=== PATIENT | male | born 1960 | race Two or more races ===

== ENCOUNTER 2016-10-30 17:00 | Observation (INO) | payer OTHER ==
[~2016-10-30] VITALS: Ht 167.6 cm; Wt 100.2 kg
[2016-10-30] MEDS ORDERED: ENAL5TAB PO (17:42)
[2016-10-30] MEDS ORDERED: SILD20TA PO (17:42)
[2016-10-30] MEDS ORDERED: OMEP-110 PO (17:42)
[2016-10-30] MEDS ORDERED: PIOG45TA3 PO (17:42)
[2016-10-30] MEDS ORDERED: METF500T4 PO (17:42)
[2016-10-30] MEDS ORDERED: TAMS-11 PO (17:42)
[2016-10-30 17:49] LABS: HEMOGLOBIN 14.6 g/dL (13.7-18.0)
[2016-10-30] MEDS ORDERED: SODIUM CHLORIDE 0.9% 1,000 ML IV ONE (18:00)
[2016-10-30 18:14] LABS: BLOOD UREA NITROGEN 11 mg/dL (7-18)
[2016-10-30] MEDS ORDERED: SODIUM CHLORIDE FLUSH 10ML SYR IVF ONE (18:30)
[2016-10-30] MEDS ORDERED: SODIUM CHLORIDE FLUSH 10ML SYR IVF PRN (19:00)
[2016-10-30] MEDS ORDERED: ONDANSETRON 2MG/ML, 2ML ONE (19:21)
[2016-10-30] MEDS ORDERED: MORPHINE SULFATE 4 MG/ML, 1ML ONE (19:21)
[2016-10-30] MEDS ORDERED: HYDROmorphone 1 MG/ML, 1ML ONE (19:24)
[2016-10-30] MEDS ORDERED: HYDROmorphone 1 MG/ML, 1ML IVPush PRN (19:30)
[2016-10-30] MEDS ORDERED: ONDANSETRON 2MG/ML, 2ML IVPush ONE (19:30)
[2016-10-30] MEDS ORDERED: [UNRECOGNIZED DRUG - REMARK] SQ (19:32)
[2016-10-30] MEDS ORDERED: DOCUSATE 100 MG CAPSULE PO PRN (20:00)
[2016-10-30] MEDS ORDERED: GLUCAGON 1 MG IM PRN (20:00)
[2016-10-30] MEDS ORDERED: DEXTROSE 4 GM TAB.CHEW PO PRN (20:00)
[2016-10-30] MEDS ORDERED: ONDANSETRON ODT 4 MG PO PRN (20:00)
[2016-10-30] MEDS ORDERED: hydrALAzine 20 MG/ML, 1ML IVPush PRN (20:00)
[2016-10-30] MEDS ORDERED: ENOXAPARIN 40 MG/0.4 ML SQ SCH (20:00)
[2016-10-30] MEDS ORDERED: BISACODYL 10 MG SUPP PR PRN (20:00)
[2016-10-30] MEDS ORDERED: HYDROmorphone 2 MG/ML, 1ML IVPush PRN (20:00)
[2016-10-30] MEDS ORDERED: DEXTROSE 50%, 50ML SYRINGE IVPush PRN (20:00)
[2016-10-30] MEDS ORDERED: POLYETHYLENE GLYCOL 17 GM PACKET PO PRN (20:00)
[2016-10-30] MEDS: SODIUM CHLORIDE FLUSH 10ML SYR IVF SCH (20:34)
[2016-10-30] MEDS ORDERED: INSULIN DETEMIR 100 UNITS/ML, PEN SQ-INSULIN SCH (21:00)
[2016-10-30] MEDS: metFORMIN 500 MG TABLET PO SCH (21:00)
[2016-10-30] MEDS: HYDROcodone/APAP 5/325 TABLET PO PRN (23:07)
[2016-10-30] MEDS ORDERED: PNEUMOCOCCAL 23 VACCINE IM-VACC ONE (23:30)
[2016-10-31 01:52] VITALS: BP 109/73
[2016-10-31] MEDS: HYDROcodone/APAP 5/325 TABLET PO PRN ×2 (08:14→14:00)
[2016-10-31] MEDS: metFORMIN 500 MG TABLET PO SCH (08:14)
[2016-10-31] MEDS: SODIUM CHLORIDE FLUSH 10ML SYR IVF SCH (08:16)
[2016-10-31 08:19] VITALS: BP 100/64
[2016-10-31] MEDS ORDERED: FINASTERIDE 5 MG TABLET PO SCH (09:00)
[2016-10-31] MEDS ORDERED: TAMSULOSIN 0.4 MG CAP.ER.24H PO SCH (09:00)
[2016-10-31] MEDS ORDERED: PIOGLITAZONE 15 MG TABLET PO SCH (09:00)
[2016-10-31] MEDS ORDERED: SENNA/DOCUSATE TABLET PO SCH (09:00)
[2016-10-31] MEDS ORDERED: OMEPRAZOLE 20 MG CAPSULE.DR PO SCH (09:00)
[2016-10-31] MEDS ORDERED: ENALAPRIL 5MG TABLET PO SCH (09:00)
[2016-10-31 12:58] VITALS: BP 117/79
[2016-10-31] MEDS ORDERED: FINA5TAB4 PO (17:17)
[2016-10-31] MEDS ORDERED: ACET650S21 PO (17:17)
[2016-10-31] MEDS ORDERED: ACET-1757 PO (17:19)
== END 2016-10-31 17:26 | disposition home or self-care (01) ==
LOC: ED 19:08 → INTOOBSV 19:20 → EDIP 19:20 → 3NE 19:30 → DCLOUNGE 10-31 17:01
PROVIDERS: ADMIT Internal Medicine; ATTEND Internal Medicine
DX: R33.8 Other retention of urine (principal); E11.9 Type 2 diabetes mellitus without complications; I10 Essential (primary) hypertension; N40.1 Benign prostatic hyperplasia with lower urinary tract symptoms; Z79.4 Long term (current) use of insulin
CPT/HCPCS: 36415; 52000; 80048; 81001; 82040; 82962; 85025; 87086; 96374; 96375; 99285; G0378; J1170; J1815; J2405